=== PATIENT | female | born 1985 | race American Indian/Alaskan Native ===

== ENCOUNTER 2016-10-04 15:44 | Observation (INO) | payer OTHER ==
[2016-10-04 16:48] VITALS: O2SAT 100
[2016-10-04] MEDS ORDERED: HYDROCORTISONE IV STA (17:11)
[2016-10-04 17:15] LABS: ADD MANUAL DIFF? NO
[2016-10-04 17:21] LABS: BASO # 0.06 K/mm3 (0.0-2.0); BASO % 0.7 % (0.0-3.0); EOS # 0.2 (0.0-0.7); EOS % 2.7 % (1.5-5.0); GRAN # 5.02 (1.4-6.5); GRAN % 61.2 % (50.0-68.0); HEMATOCRIT 24.1 % (36.0-48.0); LYMPH # 2.5 (1.2-3.4); LYMPH % 30.9 % (22.0-35.0); MEAN CELL VOLUME 58.4 fL (80.0-105.0); MEAN CORPUSCULAR HEMOGLOBIN 16.2 pg (25.0-35.0); MEAN CORPUSCULAR HGB CONC 27.8 g/dl (31.0-37.0); MONO # 0.4 (0.1-0.6); MONO % 4.5 % (1.0-6.0); PLATELET COUNT 403 10^3/uL (120.0-450.0); RED CELL DISTRIBUTION WIDTH 19.1 % (11.5-14.5); WHITE BLOOD COUNT 8.2 10^3/ul (4.5-11.0)
[2016-10-04 17:28] LABS: BLOOD UREA NITROGEN 7 mg/dL (7-21); CALCIUM 9.5 mg/dL (8.4-10.5); CARBON DIOXIDE 24 mmol/L (21-33); CHLORIDE 106 mmol/L (95-110); GFR AFRICAN-AMERICAN > 60; GLUCOSE,RANDOM 84 mg/dL (70-110)
[2016-10-04 17:30] LABS: PARTIAL THROMBOPLASTIN TIME 26.8 Seconds (23.7-30.8)
[2016-10-04 17:33] LABS: SODIUM 139 mmol/L (132-148)
--- NOTE | 2016-10-04 19:14 | ED PDOC ---
Arrival/HPI - General Historian: Patient - General Chief Complaint: Medical Clearance Time Seen by Provider: 10/04/16 15:58 - History of Present Illness Narrative History of Present Illness (Text): 10/04/16 19:14 31 y/o F w/ PMHx of anemia presents to the ED at request of Heme/Onc doctor. Pt had blood work done yesterday which should Hbg of 6.8. Pt was instructed to come to the ED for transfusion. Pt has occasional dizziness and lightheadedness but denies SOB,CP, N/V, or weakness. (Deya Yan) Past Medical History - Provider Review Nursing Documentation Reviewed: Yes - Hematological/Oncological Hx Anemia: Yes - Psychiatric Hx Substance Use: No - Surgical History Hx Section: Yes - Anesthesia Hx Anesthesia: Yes Hx Anesthesia Reactions: No Hx Malignant Hyperthermia: No Family/Social History - Physician Review Nursing Documentation Reviewed: Yes Family/Social History: No Known Family HX Smoking Status: Light Smoker < 10 Cigarettes Daily Hx Alcohol Use: No Hx Substance Use: No Allergies/Home Meds Allergies/Adverse Reactions: Allergies No Known Allergies Allergy (Verified 10/04/16 16:41) Review of Systems - Physician Review All systems were reviewed & negative as marked: Yes - Review of Systems Constitutional: absent: Fatigue Respiratory: absent: SOB Physical Exam Vital Signs Reviewed: Yes Temperature: Afebrile Blood Pressure: Normal Pulse: Regular Respiratory Rate: Normal Appearance: Positive for: Well-Appearing, Comfortable Pain Distress: None Mental Status: Positive for: Alert and Oriented X 3 - Systems Exam Head: Present: Atraumatic, Normocephalic Pupils: Present: PERRL Conjunctiva: Present: Other (pale) Mouth: Present: Moist Mucous Membranes Neck: Present: Normal Range of Motion Respiratory/Chest: Present: Clear to Auscultation. No: Respiratory Distress, Accessory Muscle Use Cardiovascular: Present: Regular Rate and Rhythm, Normal S1, S2. No: Murmurs Abdomen: Present: Normal Bowel Sounds. No: Tenderness, Distention Rectal: Present: Other (refused) Upper Extremity: Present: Normal Inspection. No: Cyanosis, Edema Lower Extremity: Present: Normal Inspection. No: Edema Neurological: Present: GCS=15, Speech Normal Skin: Present: Warm, Dry, Pale Psychiatric: Present: Alert, Oriented x 3, Normal Insight, Normal Concentration Medical Decision Making - Lab Interpretations I have reviewed the lab results: Yes ED Course and Treatment: 10/04/16 19:17 31 y/o F w/ chronic anemia here for blood transfuse - Type and cross - Benadryl PRN - Tylenol PRN - hydrocortisone 100mg IV (Deya Yan) Patient Seen With Resident: In agreement with resident note which contains more details about the patient. Patient was seen and evaluated with resident. Came up with plan and treatment together. 10/04/16 19:39 pt seent with resident. h/o of iron deficiiency anemia 2/2 heavy periods as per pmd. pt refuses guiac in emergency room. will obs for transfuion. dr hodge accepts (Dre Correa) - Lab Interpretations Lab Results: 10/04/16 16:55 10/04/16 16:55 Lab Results 10/04/16 17:40: Blood Type Confirm O NEGATIVE 10/04/16 16:55: PT 10.8, INR 1.00, APTT 26.8 10/04/16 16:55: Sodium 139, Potassium 4.0, Chloride 106, Carbon Dioxide 24, Anion Gap 13, BUN 7, Creatinine 0.7, Est GFR ( Amer) > 60, Est GFR (Non- Af Amer) > 60, Random Glucose 84, Calcium 9.5 10/04/16 16:55: WBC 8.2, RBC 4.13, Hgb 6.7 L*, Hct 24.1 L, MCV 58.4 L, MCH 16.2 L, MCHC 27.8 L, RDW 19.1 H, Plt Count 403, Gran % 61.2, Lymph % (Auto) 30.9, [place] % (Auto) 4.5, Eos % (Auto) 2.7, Baso % (Auto) 0.7, Gran # 5.02, Lymph # 2.5 , [place] # 0.4, Eos # 0.2, Baso # 0.06 10/04/16 16:55: Blood Type O NEGATIVE, Antibody Screen Negative, Crossmatch See Detail, BBK History Checked No verified bt - Medication Orders Current Medication Orders: Acetaminophen (Tylenol 325mg Tab) 650 mg PO Q4 PRN PRN Reason: Fever >100.4 F Diphenhydramine HCl (Benadryl) 25 mg PO Q6 PRN PRN Reason: Itching / Pruritus; allergy Sx Discontinued Medications Hydrocortisone Sodium Succinate (Solu-Cortef) 100 mg IV ONCE ONE Stop: 10/04/16 17:16 Last Admin: 10/04/16 18:00 Dose: 100 mg Disposition/Present on Arrival - Present on Arrival Any Indicators Present on Arrival: No History of DVT/PE: No History of Uncontrolled Diabetes: No Urinary Catheter: No History of Decub. Ulcer: No History Surgical Site Infection Following: None - Disposition Have Diagnosis and Disposition been Completed?: Yes Disposition Time: 19:20 Patient Plan: Observation - Disposition Diagnosis: Anemia Disposition: HOSPITALIZED Patient Problems: Current Active Problems Problem Status Onset Anemia Acute Condition: STABLE
[2016-10-05 00:34] VITALS: RESP 18
[2016-10-05 01:03] VITALS: BP 97/50; PULSE 69; TEMP 98.6
[2016-10-05 01:35] LABS: HEMATOCRIT 26.8 % (36.0-48.0); MEAN CORPUSCULAR HEMOGLOBIN 18.9 pg (25.0-35.0); MEAN CORPUSCULAR HGB CONC 29.5 g/dl (31.0-37.0); PLATELET COUNT 295 10^3/uL (120.0-450.0); RED CELL DISTRIBUTION WIDTH 25.3 % (11.5-14.5)
--- NOTE | 2016-10-05 07:59 | HP ---
This is the patient's hospital admission H and P to the observation floor. For Dr. Tadeo. CHIEF COMPLAINT: Dizziness. HISTORY OF PRESENT ILLNESS: The patient is a 31-year-old black female with past history significant for anemia, seen in Dr. Tadeo's office yesterday with a hemoglobin noted to be 6.8 with the patient known to have significant iron deficiency anemia with recommendations for iron infusions versus lopez sfusion of blood, for which she refused despite having family members including her aunt, who is a nu rse, comes to Dr. Tadeo's office as the patient was considered unsafe to drive her car home with th e patient being symptomatic for her anemic indices. Despite the patient being warned of possible com plications of severe anemia including heart attack, stroke and even including , she eventually r elented and is now here in the Emergency Room for emergency transfusion of packed red blood cells wit h eventual IV iron. It should be noted that her iron saturation from labs done in Dr. Tadeo's [facility] from 09/19/2016 showed an iron saturation of 2%. She reports that her menses was approximately 2 w eeks prior with the patient denying . With this, the patient was reluctant, however, she is now here for transfusion as her lightheadedness and dizziness persist with considerations for severe consequences should her anemic indices drop any further. ALLERGIES: No known allergies. MEDICATIONS: Include oral iron tablets b.i.d. She reports she was not taking them recently as she h ad difficulty obtaining them. FAMILY HISTORY AND SOCIAL HISTORY: She has 2 children alive and well. Smokes a half pack a day. Ot herwise, noncontributory. Her aunt is a nurse. Mother is alive and well. PAST MEDICAL HISTORY: Significant for questionable anemic issues in the past with questionable fibro ids and menorrhagia. REVIEW OF SYSTEMS: Essentially negative to questioning except as above. OBJECTIVE AND PHYSICAL EXAMINATION: VITAL SIGNS: Temperature 97.6, pulse 85, respirations 14, blood pressure 99/67, pulse ox 100%. HEENT: Unremarkable. NECK: Supple. HEART: Regular rate. LUNGS: Clear. ABDOMEN: Soft, nontender. EXTREMITIES: No edema. SKIN: Warm, dry and clear. NEUROLOGIC: Awake, alert, and oriented x 3. She is lying awake in bed. The patient's labs were done. White blood cell count of 8.2, hemoglobin of 6.7, hematocrit of 24.1, platelet count of 403,000 with an MCV of 58. Her INR was 1.0. Chem-7 was within normal range. It s hould be noted that we did labs on 09/19/2016 from [facility] showing a hemoglobin that d ay of 7.0, iron saturation of 2%, iron value of 10, ferritin of 3.0, BUN of 6 with an otherwise nav l chem metabolic panel. Her labs in Dr. Tadeo's office yesterday include white blood cell count of 9.7, hemoglobin of 6.8, hematocrit of 22.7, platelet count of 457,000 with an MCV of 54.3. ASSESSMENT: Symptomatic severe anemia, probably secondary to gynecological issues with dizziness, ob esity, smoking, menorrhagia. PLAN: To transfuse 2 units of packed red blood cells after convincing the patient of the need for th is. We will also recommend a gastrointestinal consult for her severe anemia with a DEMAND GENERATION MANAGER consult. How ever, the patient refuses this at this time. She also refused a stool for occult blood. We will als o give oxygen 2 liters nasal cannula with the patient to follow up with her barrel dedenting machine operator and gastroin testinal regulatory affairs consultant for workup of her anemia with IV iron to be offered as an outpatient once the pat ient is stable. She is to continue her oral iron. The patient reports she will sign against medical advice should it be necessary as she refuses to be hospitalized any longer than the transfusions jeronimo l allow despite recommendations for further workup. We will try to obtain the patient's labs post-tr ansfusion with the patient to follow up with Dr. Tadeo in the office in 5 days' time with IV iron t o be requested and to be given as indicated. Prognosis for this patient is guarded with the patient noted to be noncompliant with recommendations in the past. We will attempt to accommodate her as pos sible. Pepe Connors MD cc: [phone] TT: 10/05/2016 07:59:50 en
--- NOTE | 2016-11-03 09:04 | CP.PCM.DIS ---
Provider - Provider Date of Admission: 10/04/16 17:50 Attending physician: Pepe Connors MD Primary care physician: Jose Alejandro Fonseca MD Time Spent in preparation of Discharge (in minutes): 10 Hospital Course - Lab Results Lab Results: Most Recent Lab Values WBC 8.0 10^3/ul (4.5-11.0) 10/05/16 01:20 RBC 4.19 10^6/uL (3.5-6.1) 10/05/16 01:20 Hgb 7.9 gm/dL (12.0-16.0) L 10/05/16 01:20 Hct 26.8 % (36.0-48.0) L 10/05/16 01:20 MCV 64.0 fL (80.0-105.0) L 10/05/16 01:20 MCH 18.9 pg (25.0-35.0) L 10/05/16 01:20 MCHC 29.5 g/dl (31.0-37.0) L 10/05/16 01:20 RDW 25.3 % (11.5-14.5) H 10/05/16 01:20 Plt Count 295 10^3/uL (120.0-450.0) 10/05/16 01:20 Gran % 61.2 % (50.0-68.0) 10/04/16 16:55 Lymph % (Auto) 30.9 % (22.0-35.0) 10/04/16 16:55 [place] % (Auto) 4.5 % (1.0-6.0) 10/04/16 16:55 Eos % (Auto) 2.7 % (1.5-5.0) 10/04/16 16:55 Baso % (Auto) 0.7 % (0.0-3.0) 10/04/16 16:55 Gran # 5.02 (1.4-6.5) 10/04/16 16:55 Lymph # 2.5 (1.2-3.4) 10/04/16 16:55 [place] # 0.4 (0.1-0.6) 10/04/16 16:55 Eos # 0.2 (0.0-0.7) 10/04/16 16:55 Baso # 0.06 K/mm3 (0.0-2.0) 10/04/16 16:55 PT 10.8 Seconds (9.9-11.8) 10/04/16 16:55 INR 1.00 (0.93-1.08) 10/04/16 16:55 APTT 26.8 Seconds (23.7-30.8) 10/04/16 16:55 Sodium 139 mmol/L (132-148) 10/04/16 16:55 Potassium 4.0 mmol/L (3.6-5.0) 10/04/16 16:55 Chloride 106 mmol/L (95-110) 10/04/16 16:55 Carbon Dioxide 24 mmol/L (21-33) 10/04/16 16:55 Anion Gap 13 (10-20) 10/04/16 16:55 BUN 7 mg/dL (7-21) 10/04/16 16:55 Creatinine 0.7 mg/dL (0.5-1.4) 10/04/16 16:55 Est GFR ( Amer) > 60 10/04/16 16:55 Est GFR (Non-Af Amer) > 60 10/04/16 16:55 Random Glucose 84 mg/dL (70-110) 10/04/16 16:55 Calcium 9.5 mg/dL (8.4-10.5) 10/04/16 16:55 Blood Type O NEGATIVE 10/04/16 16:55 Blood Type Confirm O NEGATIVE 10/04/16 17:40 Antibody Screen Negative 10/04/16 16:55 Crossmatch See Detail 10/04/16 16:55 BBK History Checked No verified bt 10/04/16 16:55 - Hospital Course Hospital Course: Pt txfused w good effect, dc'd home Discharge Exam - Head Exam Head Exam: NORMOCEPHALIC - Eye Exam Eye Exam: Normal appearance - ENT Exam ENT Exam: Normal Exam - Neck Exam Neck exam: Normal Inspection - Respiratory Exam Respiratory Exam: Clear to PA & Lateral, NORMAL BREATHING PATTERN - Cardiovascular Exam Cardiovascular Exam: REGULAR RHYTHM - GI/Abdominal Exam GI & Abdominal Exam: Normal Bowel Sounds, Soft - Neurological Exam Neurological exam: Alert, Oriented x3 - Skin Skin Exam: Normal Color Discharge Plan - Follow Up Plan Patient education suggested?: Yes Instructions: Blood Transfusion (DC), Anemia (DC), Anemia (GEN), Thrombocytopenia (DC) Additional Instructions: patient is to follow up with primary MD. Return to ED if patient is experiencing any shortness of breath, dizziness and weakness, or pain. Referrals: Jose Alejandro Fonseca MD [Primary Care Provider] - Follow up with primary Clinical Quality Measures - Date & Time of Discharge Summary Date of Discharge Summary: 11/03/16 Time of Discharge Summary: 09:00
== END 2016-10-05 02:17 | disposition home or self-care (01) ==
LOC: ED 15:44 → ERH 17:50 → 3RSO 21:16
PROVIDERS: ADMIT Family Medicine; ATTEND Family Medicine
DX: D50.9 Iron deficiency anemia, unspecified (principal); E66.9 Obesity, unspecified; N92.0 Excessive and frequent menstruation with regular cycle; F17.210 Nicotine dependence, cigarettes, uncomplicated
CPT/HCPCS: 36415; 36430; 80048; 85025; 85027; 85610; 85730; 86850; 86900; 86920; 99285; G0378; J1720; P9016